=== PATIENT | male | born 1995 | race Two or more races ===

== ENCOUNTER 2018-03-28 21:35 | Emergency (ER) | payer OTHER ==
[~2018-03-28] VITALS: Ht 180.3 cm; Wt 96.6 kg
[2018-03-29] MEDS ORDERED: CETIRIZINE HCL10 MG PO (01:06)
[2018-03-29] MEDS ORDERED: KETO10TA2 PO (01:06)
[2018-03-29] MEDS ORDERED: FLONASE ALLERG9.9 ML NASAL (01:06)
[2018-03-29] MEDS ORDERED: ZITHROMAX500 MG PO (01:06)
== END 2018-03-29 01:20 | disposition home or self-care (01) ==
LOC: ER 21:35
DX: J01.00 Acute maxillary sinusitis, unspecified (principal)

== ENCOUNTER 2019-07-20 23:34 | Emergency (ER) | payer OTHER ==
[~2019-07-20] VITALS: Ht 180.3 cm; Wt 913.1 kg
[~2019-07-20 23:34] MED LIST: CETIRIZINE HCL10 MG PO; FLONASE ALLERG9.9 ML NASAL; KETO10TA2 PO; ZITHROMAX500 MG PO
[2019-07-21] MEDS ORDERED: FLONASE16 GM NASAL (04:12)
[2019-07-21] MEDS ORDERED: ZYNCOF 20-400120 ML PO (04:16)
[2019-07-21] MEDS ORDERED: ALBUTEROL2.5 MG/3 M IH (04:16)
== END 2019-07-21 04:27 | disposition home or self-care (01) ==
LOC: ER 23:34
DX: J32.0 Chronic maxillary sinusitis (principal); J06.9 Acute upper respiratory infection, unspecified; R50.9 Fever, unspecified

== ENCOUNTER 2021-01-21 20:33 | Emergency (ER) | payer OTHER ==
[~2021-01-21] VITALS: Ht 180.3 cm; Wt 98.0 kg
[~2021-01-21 20:33] MED LIST changes: +ALBUTEROL2.5 MG/3 M IH; +FLONASE16 GM NASAL; +ZYNCOF 20-400120 ML PO
== END 2021-01-22 00:24 | disposition home or self-care (01) ==
LOC: ER 20:33
DX: R22.1 Localized swelling, mass and lump, neck (principal); M54.2 Cervicalgia